=== PATIENT | female | born 1945 | race Two or more races ===

== ENCOUNTER 2020-06-25 06:40 | Day surgery (SDC) | payer OTHER | END 2020-06-25 12:30 | disposition home or self-care (01) | LOC: AMB-ENDOS 06:40 | PROVIDERS: ATTEND Colon & Rectal Surgery | DX: D12.3 Benign neoplasm of transverse colon (principal); K62.82 Dysplasia of anus; K64.1 Second degree hemorrhoids; Z20.822 Contact with and (suspected) exposure to COVID-19 ==